=== PATIENT | male | born 1935 | race Caucasian/White ===

== ENCOUNTER → 2019-10-14 14:01 | Outpatient (CLI) | payer MEDICARE, OTHER, SELFPAY ==
--- NOTE | ~2019-10-14 | MR_ITS ---
EXAMINATION: MR brain IAC wo/w con EXAM DATE: 10/14/2019 15:17 INDICATION: Vertigo. Vestibular neuritis. Difficulty turning head to the left, intermittent symptoms. History of skin cancer. TECHNIQUE: Multi-sequential, multiplanar MR images of the brain, brainstem, internal auditory canals were obtained without contrast. Whole brain sagittal T1, axial diffusion, gradient echo (T2*), T1, T 2, FLAIR sequences obtained. High resolution coronal 3-D FIESTA, coronal T1 FSE, axial T1 FSPGR of t he internal auditory canals. Patient was then injected with 14 cc Multihance contrast intravenously. Postcontrast axial and coronal T1 weighted whole brain, axial and coronal high resolution T1 IAC seq uences obtained. There is no prior study for comparison. FINDINGS: On the sagittal T1-weighted sequence there is retrolisthesis C3 on C4 with some advanced di sc disease and probably some cord compression, could be chronic but MR cervical spine without contras t is indicated for further evaluation. No evidence of mastoid or middle ear opacification. The 7th/8th cranial nerve complexes are symmetri c, normal in course and caliber. No cerebellopontine angle masses. Posterior fossa unremarkable. There are no areas of restricted diffusion to suggest acute infarction. There is minimal microangiopa thy. There is no acute hemorrhage seen on the T2*, a hemosiderin sensitive sequence. No intraparench ymal brain mass. The ventricles are normal in size. There are no extra-axial collections. Flow void s are seen in the cerebral arteries on the T2-weighted sequences consistent with their expected paten cy. Patient has had bilateral ocular lens surgery. Soft tissue is unremarkable. IMPRESSION: 1. 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 This may well be a incidental chronic finding but cervical spine MRI examination should be considered. 2. Minimal microangiopathy. 3. Unremarkable posterior fossa. Reviewed, dictated and finalized at location A. SPRAYER IMPRESSION: 1. 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 This may well be a incident al chronic finding but cervical spine MRI examination should be considered. 2. Minimal microangiopathy. 3. Unremarkable posterior fossa.
[2019-10-14 14:40] LABS: Blood Urea Nitrogen 28 mg/dL (8-26); Estimated Glomerular Filt Rate 41
== END ==
DX: H81.22 Vestibular neuronitis, left ear (principal); G95.20 Unspecified cord compression; I73.9 Peripheral vascular disease, unspecified
CPT/HCPCS: 70553; A9577

== ENCOUNTER 2021-03-16 09:21 | Outpatient (CLI) | payer MEDICARE, OTHER, SELFPAY ==
--- NOTE | ~2021-03-16 | MR_ITS ---
EXAMINATION: MR abdomen wo/w con INDICATION: Gross hematuria TECHNIQUE: Coronal SSFSE ARC, WATER:coronal LAVA-FLEX, Coronal 2D FIESTA FatSat, Axial SSFSE BH ARC, Axial 3D DualEcho BH, Axial SSFSE-IR, Axial DWI b=500, Axial 2D FIESTA FatSat, pre and dynamic postco ntrast Axial LAVA ARC, postcontrast Coronal In and Opposed phase LAVA FLEX COMPARISON: None available CONTRAST: Multihance, 13 cc FINDINGS: The liver, gallbladder, and adrenal glands are normal. There is a 4 mm cyst of the spleen. There is age-related atrophy of the pancreas. A 5 mm cystic lesion is noted in the head of the pancre as. There is a 9 mm cyst of the left kidney lower pole. No suspicious renal or urothelial lesion is i dentified. There are no pathologically enlarged abdominal lymph nodes. No dilated loops of bowel are identified. There is a moderate volume of colonic stool. IMPRESSION: 1. No MRI correlate for the patient's symptoms. 2. 5 mm cystic lesion in the head of the pancreas. The differential diagnosis includes pseudocyst, in traductal papillary mucinous neoplasm (IPMN), mucinous cystic neoplasm (MCN), and the less common ser ous cystadenoma and neuroendocrine tumor. Correlate for history of pancreatitis. Follow-up MRI withou t and with contrast in two years is recommended. Reviewed, dictated and finalized at location B. IMPRESSION: 1. No MRI correlate for the patient's symptoms. 2. 5 mm cystic lesion in the head of the pancreas. The differential diagnosis i ncludes pseudocyst, intraductal papillary mucinous neoplasm (IPMN), mucinous cy stic neoplasm (MCN), and the less common serous cystadenoma and neuroendocrine tumor. Correlate for history of pancreatitis. Follow-up MRI without and with co ntrast in two years is recommended.
[2021-03-16 10:14] LABS: Estimated Glomerular Filt Rate 41
== END 2021-03-16 09:22 | disposition home or self-care (01) ==
LOC: ANHIMG 09:32
PROVIDERS: Visit Provider Urology
DX: R31.0 Gross hematuria (principal); K86.9 Disease of pancreas, unspecified
CPT/HCPCS: 74183; A9577

== ENCOUNTER 2021-05-20 10:48 | Outpatient (CLI) | payer MEDICARE, OTHER, SELFPAY ==
--- NOTE | ~2021-05-20 | MR_ITS ---
EXAMINATION: MR lumbar spine wo con DATE: 05/20/2021 11:56 INDICATION: Lumbar spinal stenosis. TECHNIQUE: Magnetic resonance imaging (MRI) of the lumbar spine was performed without intravenous con trast. Sequences included sagittal T2-weighted FSE, sagittal T2-weighted FS FSE, sagittal T1-weighted FSE, and axial T2-weighted FSE. COMPARISON: None FINDINGS: There is 3 mm retrolisthesis of L1 on L2 and 3 mm anterolisthesis of L4 on L5. There is mil d chronic anterior wedging of T11 and T12 vertebral bodies. There is moderately decreased disc height at L1-L2, mildly decreased disc height at L2-L3 and L3-L4, and moderately decreased disc height at L 4-L5. The distal spinal cord signal intensity is normal. The conus medullaris is at L1. The following disc levels are specifically discussed: L1-L2: The disc is bulging and has an annular fissure. There is mild bilateral facet joint osteoarthr itis. There is moderate bilateral neural foraminal stenosis. There is mild central canal stenosis. L2-L3: The disc is bulging and has an annular fissure. There is mild bilateral facet joint osteoarthr itis. There is moderate bilateral neural foraminal stenosis. There is mild central canal stenosis. L3-L4: The disc is bulging and has an annular fissure. There is moderate bilateral facet joint osteoa rthritis. There is moderate bilateral neural foraminal stenosis. There is mild central canal stenosis . L4-L5: The disc is bulging and has an annular fissure. There is severe bilateral facet joint osteoart hritis. There is moderate bilateral neural foraminal stenosis. There is moderate central canal stenos is. L5-S1: The disc does not extend beyond the endplate margin. There is moderate bilateral facet joint o steoarthritis. There is mild left neural foraminal stenosis. There is no central canal stenosis. IMPRESSION: 1. Moderate lumbar spondylosis. Reviewed, dictated and finalized at location A.
== END 2021-05-20 10:49 | disposition home or self-care (01) ==
DX: M47.817 Spondylosis without myelopathy or radiculopathy, lumbosacral region (principal); M48.07 Spinal stenosis, lumbosacral region
CPT/HCPCS: 72148

== ENCOUNTER 2022-06-03 16:36 | Outpatient (CLI) | payer MEDICARE, OTHER, SELFPAY ==
--- NOTE | ~2022-06-03 | MR_ITS ---
EXAMINATION: MR brain/brain stem wo/w con DATE: 06/03/2022 17:36 INDICATION: Vertigo TECHNIQUE: Magnetic resonance imaging (MRI) of the brain and brainstem was performed without and with 14 cc MultiHance intravenous contrast. Sequences included sagittal and axial T1-weighted SE, axial diffusion-weighted FS SE, axial T2*-weighted GRE, axial T2-weighted FLAIR Propeller, and axial T2-kashif ghted Propeller. Apparent diffusion coefficient (ADC) maps were created. COMPARISON: MRI dated 10/14/2019. FINDINGS: Normal brain parenchymal volume for age. No ventriculomegaly or midline shift. No evidence for acute infarction or hemorrhage. There are scattered mild periventricular and subcortical white ma tter changes, most likely related to small vessel ischemic disease (microangiopathy). Orbits are symm etric without disconjugate gaze. No abnormal contrast enhancement. Structures of the posterior fossa including 7/8th cranial nerve complexes are normal. Midline sagittal images demonstrate a normal cheryle us callosum and craniovertebral junction. IMPRESSION: 1. No acute intracranial abnormality. 2: Chronic age-related findings. Reviewed, dictated and finalized at location A.
== END 2022-06-03 16:37 | disposition home or self-care (01) ==
LOC: ANHIMG 16:46
DX: R42 Dizziness and giddiness (principal)
CPT/HCPCS: 70553; A9577

== ENCOUNTER 2022-08-19 15:31 | Emergency (ER) | payer MEDICARE, OTHER, SELFPAY ==
--- NOTE | 2022-08-19 15:32 | ED.URI ---
HPI - URI/Sore Throat General Stated Complaint: covid test; congestion; cough Time Seen by Provider: 08/19/22 16:11 Source: patient and RN notes reviewed Mode of arrival: ambulatory Limitations: no limitations History of Present Illness HPI Narrative: 86-year-old male presents to concern for COVID test. Reports he has had runny nose, stuffy nose, sore throat, low-grade temperature for approximately 3-4 days. His reports she has been giving him Mucinex DM with some relief. He denies shortness of breath, chills, sweats MD elicited complaint: cough and sore throat Related Data Home Medications Medication Instructions Recorded Confirmed apixaban 5 mg tablet (Eliquis) 5 mg PO BID 08/19/22 08/19/22 metoprolol tartrate 25 mg tablet 25 mg PO DAILY 08/19/22 08/19/22 silodosin 4 mg capsule 4 mg PO DIRECTED 08/19/22 08/19/22 tadalafil 5 mg tablet 5 mg PO DIRECTED 08/19/22 08/19/22 Allergies Allergy/AdvReac Type Severity Reaction Status Date / Time No Known Allergies Allergy Mild Verified 08/19/22 15:34 Review of Systems Review of Systems: CONSTITUTIONAL: Denies malaise, chills, sweats. Reports low-grade fever. EYES: Denies visual changes, redness, or discharge. ENT: Reports rhinorrhea, congestion, sore throat. Denies sinus pain, otalgia and sore throat. CARDIOVASCULAR: Denies chest pain, palpitations, or edema. RESPIRATORY: Reports cough. Denies dyspnea. GASTROINTESTINAL: Denies abdominal pain, nausea, vomiting, diarrhea SKIN: Denies rash or itching. MUSCULOSKELETAL: Denies myalgia. NEUROLOGIC: Denies headache. All systems reviewed & are unremarkable except as noted in HPI and below PMFSH Comments At time of signature, agree with nursing past medical, surgical, social and family history. There is no relevant family history pertinent to the presenting complaint Exam Narrative: GENERAL: Well-appearing, well-nourished, and in no acute distress. HEAD: Normocephalic EYES: PERRLA, conjunctivae clear ENT: Nares clear, turbinates edematous and erythematous, clear discharge. Mucous membranes moist. TM pearly cruz with dull light reflex bilaterally; no tragal tenderness. Oropharynx not erythematous without lesions. Tonsils not enlarged and without exudate, no drooling, no hoarseness, no trismus, uvula midline. NECK: Supple. No lymphadenopathy CHEST: Clear to auscultation, breath sounds equal. No wheezing, rhonchi, rales, or stridor. No respiratory distress, speaks in full sentences. HEART: Regular rate and rhythm. No murmur heard. SKIN: Warm, dry, no rash. NEURO: Alert and oriented x3. PSYCH: Normal mood and affect Course Course Emergency Course: Patient is aware of diagnosis, understands and agrees to treatment plan. Anticipatory guidance given. Patient agrees to follow-up as directed and is aware of reasons to seek care at the emergency department. Portions of this record may have been created with voice recognition software Level of Care: Express Care Visit Vital Signs Vital signs: Reviewed. MDM - URI/Sore Throat MDM Narrative Medical decision making narrative: Differential diagnosis considered: Dominique virus, strep pharyngitis, allergic rhinitis, upper respiratory tract infection, sinusitis, rhinosinusitis, nasopharyngitis. viral pharyngitis, otitis media, otitis externa, pneumonia, bronchitis, viral cough syndrome, viral syndrome, and influenza. Exam findings show no acute concerns or changes; patient is non-toxic appearing and is in no distress. Patient is appropriate for outpatient treatment and follow-up. Lab Data Attestation: I reviewed the patient's lab results. Critical Care Time Critical Care Time Critical Care Time: No Discharge Plan Discharge Clinical Impression: COVID Patient Disposition: Home, Self-Care Condition: Stable Instructions: How to Recover from COVID-19 at Home (ED) Additional Instructions: Your rapid COVID test is positive. Take Paxlovid as prescribed by your primar
[2022-08-19 16:08] VITALS: BP 138/67; PULSE 76; RESP 18; TEMP 37; O2SAT 97
== END 2022-08-19 16:22 | disposition home or self-care (01) ==
PROVIDERS: Emergency Provider Nurse Practitioner
DX: U07.1 COVID-19 (principal); I48.91 Unspecified atrial fibrillation; I10 Essential (primary) hypertension; K21.9 Gastro-esophageal reflux disease without esophagitis; N40.0 Benign prostatic hyperplasia without lower urinary tract symptoms; M19.90 Unspecified osteoarthritis, unspecified site
CPT/HCPCS: 87426; 99213; C9803; G0463

== ENCOUNTER → 2023-03-08 14:58 | Outpatient (CLI) | payer MEDICARE, OTHER, SELFPAY ==
--- NOTE | ~2023-03-08 | XR_ITS ---
EXAMINATION: XR hip BI 2V w AP pelvis DATE: 03/08/2023 15:25 INDICATION: Left hip pain. Fall. TECHNIQUE: An anteroposterior view of the pelvis and 2 views of each hip were obtained. COMPARISON: None. FINDINGS: Bone alignment is normal. No fracture. There is moderate lumbar spondylosis. There is mild right hip osteoarthritis and moderate left hip osteoarthritis. IMPRESSION: 1. 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 Reviewed, dictated and finalized at location E.
--- NOTE | ~2023-03-08 | XR_ITS ---
EXAMINATION: XR chest 2V DATE: 03/08/2023 15:25 INDICATION: Left-sided pain. Fall. TECHNIQUE: Frontal and lateral views of the chest were obtained. COMPARISON: None. FINDINGS: There is no pneumonia, pleural effusion, or pneumothorax. Cardiomegaly is noted. There is a right shoulder arthroplasty. There are old healed right rib fractures. IMPRESSION: 1. Cardiomegaly. Reviewed, dictated and finalized at location E. IMPRESSION: 1. Cardiomegaly.
== END ==
DX: M16.11 Unilateral primary osteoarthritis, right hip (principal); I51.7 Cardiomegaly; Y92.009 Unspecified place in unspecified non-institutional (private) residence as the place of occurrence of the external cause
CPT/HCPCS: 71046; 73521

== ENCOUNTER 2023-06-28 12:51 | Outpatient (CLI) | payer MEDICARE, OTHER, SELFPAY ==
[2023-06-28 14:17] LABS: Basophils Percent Auto 0.6 % (0.2-1.2); Eosinophils Absolute Auto 0.1 K/mm3 (0-0.3); Eosinophils Percent Auto 1.8 % (0-4.4); Hematocrit 25.3 % (42.0-52.0); Hemoglobin 7.3 g/dL (14.0-18.0); Immature Granulocyte Absolute 0.02 K/mm3 (0.00-0.031); Immature Granulocyte Percent A 0.3 % (0-0.5); Lymphocytes Absolute Auto 1.22 K/mm3 (0.9-3.2); Lymphocytes Percent Auto 19.6 % (18.3-44.2); Mean Corpuscular HGB Conc 28.9 g/dl (32-36); Mean Corpuscular Hemoglobin 21.3 pg (26-34); Mean Corpuscular Volume 73.8 fl (80-100); Mean Platelet Volume 10.4 fl (7.4-10.4); Monocytes Absolute Auto 0.5 K/mm3 (0.1-0.6); Monocytes Percent Auto 8.2 % (2.6-8.5); Neutrophils Absolute Auto 4.3 K/mm3 (1.3-6.7); Neutrophils Percent Auto 69.5 % (45.5-73.1); Platelet Count Result 274 k/mm3 (150-375); Red Blood Count 3.43 M/mm3 (4.6-6.20); Red Cell Distribution Width 18.7 % (11.5-14.5); White Blood Count 6.2 K/mm3 (4.5-10.0)
[2023-06-28 14:29] LABS: Iron 34 ug/dL (49-181)
[2023-06-28 14:38] LABS: Percent Iron Saturation 10 % (20-50)
[2023-06-28 14:47] LABS: Platelet Estimate Adequate (Adequate); Schistocytes None Seen (NORMAL)
[2023-06-28 14:48] LABS: Anisocytosis 2+ (NORMAL); Hypochromasia 1+ (NORMAL)
== END 2023-06-28 12:52 | disposition home or self-care (01) ==
DX: D64.9 Anemia, unspecified (principal)
CPT/HCPCS: 36415; 83540; 83550; 85025

== ENCOUNTER 2023-07-06 15:37 | Outpatient (CLI) | payer MEDICARE, OTHER, SELFPAY ==
[2023-07-06 17:00] LABS: Basophils Percent Auto 0.3 % (0.2-1.2); Eosinophils Absolute Auto 0.2 K/mm3 (0-0.3); Eosinophils Percent Auto 2.3 % (0-4.4); Hematocrit 29.5 % (42.0-52.0); Hemoglobin 8.5 g/dL (14.0-18.0); Immature Granulocyte Absolute 0.02 K/mm3 (0.00-0.031); Immature Granulocyte Percent A 0.3 % (0-0.5); Lymphocytes Absolute Auto 1.37 K/mm3 (0.9-3.2); Lymphocytes Percent Auto 17.1 % (18.3-44.2); Mean Corpuscular HGB Conc 28.8 g/dl (32-36); Mean Corpuscular Hemoglobin 22.5 pg (26-34); Mean Corpuscular Volume 78.2 fl (80-100); Monocytes Absolute Auto 0.8 K/mm3 (0.1-0.6); Monocytes Percent Auto 10.1 % (2.6-8.5); Neutrophils Absolute Auto 5.6 K/mm3 (1.3-6.7); Neutrophils Percent Auto 69.9 % (45.5-73.1); Platelet Count Result 271 k/mm3 (150-375); Red Blood Count 3.77 M/mm3 (4.6-6.20); Red Cell Distribution Width 21.3 % (11.5-14.5)
[2023-07-06 17:14] LABS: Hypochromasia 1+ (NORMAL); Ovalocytes 1+ (NORMAL); Platelet Estimate Adequate (Adequate); Schistocytes None Seen (NORMAL)
== END 2023-07-06 15:38 | disposition home or self-care (01) ==
DX: D64.9 Anemia, unspecified (principal)
CPT/HCPCS: 36415; 85025

== ENCOUNTER 2023-07-24 14:03 | Outpatient (CLI) | payer MEDICARE, OTHER, SELFPAY ==
[2023-07-24 14:35] LABS: Basophils Percent Auto 0.5 % (0.2-1.2); Eosinophils Absolute Auto 0.2 K/mm3 (0-0.3); Eosinophils Percent Auto 2.7 % (0-4.4); Hematocrit 30.1 % (42.0-52.0); Hemoglobin 8.9 g/dL (14.0-18.0); Immature Granulocyte Absolute 0.04 K/mm3 (0.00-0.031); Immature Granulocyte Percent A 0.7 % (0-0.5); Lymphocytes Absolute Auto 0.96 K/mm3 (0.9-3.2); Mean Corpuscular HGB Conc 29.6 g/dl (32-36); Mean Corpuscular Hemoglobin 23.1 pg (26-34); Mean Corpuscular Volume 78.2 fl (80-100); Mean Platelet Volume 9.8 fl (7.4-10.4); Monocytes Absolute Auto 0.6 K/mm3 (0.1-0.6); Monocytes Percent Auto 10.1 % (2.6-8.5); Neutrophils Absolute Auto 3.9 K/mm3 (1.3-6.7); Platelet Count Result 233 k/mm3 (150-375); Red Blood Count 3.85 M/mm3 (4.6-6.20); Red Cell Distribution Width 22.5 % (11.5-14.5); White Blood Count 5.7 K/mm3 (4.5-10.0)
[2023-07-24 14:48] LABS: Anisocytosis 1+ (NORMAL); Hypochromasia 1+ (NORMAL); Ovalocytes 1+ (NORMAL); Platelet Estimate Adequate (Adequate); Schistocytes None Seen (NORMAL)
[2023-07-24 15:28] LABS: Iron 67 ug/dL (49-181)
[2023-07-24 15:37] LABS: Percent Iron Saturation 24 % (20-50)
== END 2023-07-24 14:04 | disposition home or self-care (01) ==
DX: D64.9 Anemia, unspecified (principal)
CPT/HCPCS: 36415; 83540; 83550; 85025